=== PATIENT | female | born 1995 | race Caucasian/White ===

== ENCOUNTER 2020-01-29 17:40 | Emergency (ER) | payer MEDICAID, OTHER ==
[~2020-01-29] VITALS: Ht 154.9 cm; Wt 63.5 kg
[2020-01-29 18:28] LABS: Basophils # (auto) 0 10 ^3/uL (0-0.2); Basophils % (auto) 0.5 % (0.0-2.0); Eosinophils # (auto) 0.1 10 ^3/uL (0-0.8); Eosinophils % (auto) 0.8 % (0.0-7.0); Hematocrit 39.3 % (36.0-46.0); Lymphocytes # (auto) 2.1 10 ^3/uL (0.4-5.4); Lymphocytes % (auto) 22.5 % (10.0-50.0); Mean Corpuscular Hemoglobin 29.9 pg (28.0-32.0); Mean Corpuscular Hgb Conc. 33.2 g/dL (32.0-36.0); Mean Corpuscular Volume 90.3 fL (80.0-100.0); Monocytes # (auto) 0.6 10 ^3/uL (0-1.3); Monocytes % (auto) 5.9 % (0.0-12.0); Neutrophils # (auto) 6.6 10 ^3/uL (1.6-8.6); Neutrophils % (auto) 70.3 % (37.0-80.0); Nucleated Red Blood Cells % 0.1 %; Platelet Count (auto) 240 10^3/uL (140-450); Red Blood Cells 4.35 10^6/uL (4.0-5.20); Red Cell Distribution Width 14.9 % (11.8-14.3); White Blood Cell 9.4 10^3/uL (4.4-10.8)
[2020-01-29 18:47] LABS: Urine Bacteria NONE SEEN /hpf (None Seen); Urine Blood 1+ /uL (Negative); Urine WBC 1 /hpf (0 - 5)
[2020-01-29 19:03] LABS: Albumin 3.5 g/dL (3.4-5.0); BUN/Creatinine Ratio 14.1; Calcium 8.5 mg/dL (8.5-10.1); Potassium 3.7 mmol/L (3.5-5.1)
[2020-01-29 19:06] LABS: Bilirubin, Total 0.3 mg/dL (0.2-1.0); Total Protein 7.6 g/dL (6.4-8.2)
[2020-01-29 20:00] VITALS: BP 120/92
== END 2020-01-29 21:38 | disposition home or self-care (01) ==
LOC: ER 17:40
DX: O20.9 Hemorrhage in early pregnancy, unspecified (principal); O26.891 Other specified pregnancy related conditions, first trimester; R10.9 Unspecified abdominal pain; O99.331 Smoking (tobacco) complicating pregnancy, first trimester; Z3A.01 Less than 8 weeks gestation of pregnancy
CPT/HCPCS: 36415; 76801; 76817; 80053; 81001; 83690; 84702; 85025

== ENCOUNTER 2025-06-02 00:45 | Emergency (ER) | payer MEDICAID, OTHER ==
[~2025-06-02] VITALS: Ht 157.5 cm; Wt 75.0 kg
[2025-06-02 02:03] LABS: Hematocrit 40.7 % (36.0-46.0); Hemoglobin 13.6 g/dL (12.2-16.2); Mean Corpuscular Hemoglobin 30.0 pg (28.0-32.0); Mean Corpuscular Volume 89.8 fL (80.0-100.0); Nucleated Red Blood Cells % 0.0 %
[2025-06-02 02:19] LABS: Alanine Aminotransferase 22 U/L (7-40); Alkaline Phosphatase 76 U/L (46-116); Anion Gap 10 (5-15); BUN/Creatinine Ratio 10.4 (10.0-20.0); Calcium 9.2 mg/dL (8.7-10.4); Carbon Dioxide 24 mmol/L (20-31); Chloride 106 mmol/L (98-107); Glucose 99 mg/dL (74-106); Potassium 4.0 mmol/L (3.5-5.1); Sodium 140 mmol/L (136-145); Total Protein 7.3 g/dL (5.7-8.2)
[2025-06-02 02:20] LABS: Albumin 4.3 g/dL (3.2-4.8); Bilirubin, Total 0.2 mg/dL (0.2-1.0); Blood Urea Nitrogen 8 mg/dL (9-23); INR 0.92 (0.9-1.15); Partial Thromboplastin Time 25.1 SEC (24.5-34.5); Prothrombin Time 9.8 sec (9.3-11.8)
--- NOTE | 2025-06-02 03:22 | DVH ---
INDICATION: vag bleed, r/o ectopic TECHNIQUE: Multiple real-time grayscale transabdominal sonographic images along with color and duplex Doppler of the uterus and ovaries were obtained. COMPARISON: None FINDINGS: The uterus measures 7.6 x 4.2 x 4.6 cm. The myometrium is homogeneous. No intrauterine gestational sac or cavitary fluid. Endometrial thickness measures 12.5 mm. A nabothi an cyst and small amount of endocervical fluid are present. The right ovary measures 3.5 x 2 x 2 cm and contains a cystic lesion with low-level internal echoes m easuring 2.2 x 2.1 x 1.9 cm. Ovarian color and spectral Doppler flow are present. The left ovary measures 4.9 x 3.5 x 4 cm and contains a cystic lesion with low-level internal echoes measuring 2.6 x 3.1 x 4.1 cm. Ovarian color and spectral Doppler flow are present. A physiologic amount of simple pelvic ascites is present in the posterior cul-de-sac. IMPRESSION: 1. No intrauterine gestation. In the setting of a positive laboratory tests for and no hist ory of miscarriage, exam is consistent with of unknown location, designation which includes normal early as does not exclude ectopic . Recommend trending of quantitative HC G values and close clinical follow-up. Follow-up ultrasound may be considered within 2 weeks. 2. Mildly complex cystic lesions in each ovary demonstrate echotexture most consistent with hemorrhag ic cysts, and no specific features of gestational sac/ectopic . Attention on subsequent exam s. 3. Small amount of simple appearing pelvic ascites.
--- NOTE | 2025-06-02 04:08 | ED.PDOC ---
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 Patient is a , approximately 3-4 weeks by LMP (end date May 11). States she has started having vaginal bleeding 5 days ago, consuming 2 pads per day. Three days ago, she tested positive for , associated with left lower quadrant abdominal pain. She was seen by her OB yesterday morning, advised close follow up, but patient went to [facility] last night because she was worried. Patient has an other checkup with her Ob, 2 days from now . Her OB Gyne doctor order her some outpatient labs to be obtained on Wednesday. It sounded like the OB Gyne doctor who saw her yesterday was not worried about her history and findings and complaints and wanted to monitor as an outpatient. He also performed an ultrasound in his office but did not obtain a beta-hCG levels and ordered the test as an outpatient. Patient does not know her beta-hCG levels that was obtained at [facility]. Patient is nontoxic in appearance not hypotensive stable vital signs in no acute distress. Initial Vitals BP: 151/91 HR: 75 RR: 20 O2: 97% Temp: 98.1 Past Medical History: Vitamin-D deficiency, endometriosis, dyslipidemia, ovarian cyst Past Surgical History: Laparoscopic procedure for endometriosis 2020, right sa lpingectomy for ruptured ectopic Social History: Denies ETOH, smoking, and drug use. Medications: Allergies: HPI: Poor Historian. REVIEW OF SYSTEMS: CONSTITUTIONAL: Denies acute: fever, diaphoresis, chills, generalized weakness. HEAD: Denies acute: headache, photophobia Eyes: Denies acute: Double vision, vision loss, eye pain, eye discharge. EARS: Denies acute: tinnitus, hearing loss, ear discharge, ear pain, THROAT: Denies acute: sore throat, swelling, difficulty swallowing , pain with swallowing, change in voice. NECK: Denies acute: neck pain, neck swelling, stiff neck. HEART: Denies acute : chest pain, palpitations, LUNGS: Denies acute: SOB, wheezing, cough, hemoptysis ABDOMEN: Denies acute: abdominal pain, Nausea, Vomiting, diarrhea, melena , hematemesis, hematochezia SKIN: Denies acute: rash, redness, lesions, itchiness. EXTREMITIES: Denies acute: calf pain, numbness, tingling, weakness, denies pain in extremity. Denies acute: Low back pain. Neuro: Denies acute: focal neurological deficit, motor or sensory focal neurological deficit, tremors, seizure like activity, confusion, dizziness, change in mental status, loss of bowel or bladder function, cauda equina like symptoms. : Denies acute: dysuria, hematuria, flank pain, increase in urinary frequency. PSYCH: Denies acute: hallucination, suicidal ideation, homicidal ideation. FEMALE: Denies acute: foul odor, unusual discharge. PHYSICAL EXAM: General: -----no---acute distress, awake and alert. Head: normocephalic, atraumatic. Neck: supple, trachea is midline, no swelling. Throat: Normal phonation. Eyes:, no erythema, no purulent discharge, no proptosis, no icterus. Heart: regular rate, regular rhythm, no significant murmur appreciated. Lungs: no apparent respiratory distress, Able to speak in full sentences. No wheezing, no rhonchi, no crackles. No stridors Clear to auscultation bilaterally. Abdomen: Mild left lower quadrant tender to palpation, non distended, soft, no guarding, no rebound, + bowel sounds. Neuro: Awake, Alert, oriented to name, self, situation, follows commands GCS=15. Speech is normal. Skin: no petechia, no purpura, no cyanosis, non-pale, not jaundice. Lower extremities: --no - Pitting edema no deformity, no focal swelling, no calf TTP. Makes eye contact. moves all four extremities. Face: no apparent facial droop. Ambulating in the ED independently. ED COURSE: DISCLAIMER: This medical document was created using an electronic medical record system with voice recognition software and computerized dictation system. Although this document has been carefully reviewed, there might still be some phonetic and typographical errors. Occasional wrong-word or "sound-alike" substitutions may have occurred due to the inherent limitations of voice recognition software. The se areas are purely typographical due to imperfections of the software programs and do not reflect any compromise in the patient's medical care. Please read the chart carefully and recognize, using context, where these substitutions have occurred. 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) Vaginal Bleeding: - Complete, - Incomplete, - Inevitable, - Missed, - Threatened, Abruptio Placentae, Blood Loss Anemia, Cervicitis, Dysmenorrhea, Ectopic , Hormonal, Menorrhagia, Menometrorrhagia, Menstrual Bleeding, Myomatous Uterus, PID, Placenta Previa, Precipitous Hct, Trauma, UTI, Vaginitis, Other (Differential diagnosis includes but not limited to DU B, menorrhea, metromenorrhagia, neoplasm, coagulopathy,, trauma, miscarriage, placenta previa, placental abruption, ) X-Ray, Labs, Meds, VS Vital Signs Date Time Temp Pulse Resp B/P (MAP) Pulse Ox O2 Delivery O2 Flow Rate FiO2 06/02/25 05:27 97.5 85 16 130/90 (103) 98 97.5 06/02/25 03:13 97.7 76 16 117/82 (94) 96 97.7 06/02/25 00:56 98.1 75 20 151/91 97 98.1 Lab Test 06/02/25 04:46 06/02/25 01:41 Range/Units Urine Color Light-yellow Yellow Urine Clarity Turbid H Clear Urine pH 5.0 5.0-9.0 Urine Specific [place] 1.018 1.001-1.035 Urine Protein Negative Negative Urine Ketones Negative Negative Urine Blood 3+ H Negative /uL Urine Nitrite Negative Negative Urine Bilirubin Negative Negative Urine Urobilinogen Normal Negative mg/dL Urine Leukocyte Esterase Negative Negative /uL Urine RBC <1 0 - 4 /hpf Urine Microscopic WBC 1 0-5 /HPF Urine Squamous Epithelial Cells Few <5 /hpf Urine Bacteria None seen None Seen /hpf Urine Glucose Normal Normal mg/dL White Blood Count 9.1 4.4-10.8 10^3/uL Red Blood Count 4.53 4.0-5.20 10^6/uL Hemoglobin 13.6 12.2-16.2 g/dL Hematocrit 40.7 36.0-46.0 % Mean Corpuscular Volume 89.8 80.0-100.0 fL Mean Corpuscular Hemoglobin 30.0 28.0-32.0 pg Mean Corpuscular Hemoglobin Concent 33.4 32.0-36.0 g/dL Red Cell Distribution Width 14.4 H 11.8-14.3 % Platelet Count 208 140-450 10^3/uL Mean Platelet Volume 9.7 6.9-10.8 fL Neutrophils (%) (Auto) 58.5 37.0-80.0 % Lymphocytes (%) (Auto) 31.6 10.0-50.0 % Monocytes (%) (Auto) 7.2 0.0-12.0 % Eosinophils (%) (Auto) 2.3 0.0-7.0 % Basophils (%) (Auto) 0.4 0.0-2.0 % Neutrophils # (Auto) 5.3 1.6-8.6 10 ^3/uL Lymphocytes # (Auto) 2.9 0.4-5.4 10 ^3/uL Monocytes # (Auto) 0.7 0-1.3 10 ^3/uL Eosinophils # (Auto) 0.2 0-0.8 10 ^3/uL Basophils # (Auto) 0 0-0.2 10 ^3/uL Nucleated Red Blood Cells 0.0 % Prothrombin Time 9.8 9.3-11.8 sec Prothrombin Time INR 0.92 0.9-1.15 Activated Partial Thromboplast Time 25.1 24.5-34.5 SEC Sodium Level 140 136-145 mmol/L Potassium Level 4.0 3.5-5.1 mmol/L Chloride Level 106 98-107 mmol/L Carbon Dioxide Level 24 20-31 mmol/L Anion Gap 10 5-15 Blood Urea Nitrogen 8 L 9-23 mg/dL Creatinine 0.77 0.550-1.02 mg/dL Glomerular Filtration Rate Calc 106 >90 mL/min BUN/Creatinine Ratio 10.4 10.0-20.0 Serum Glucose 99 74-106 mg/dL Lactic Acid Level 1.2 0.4-2.0 mmol/L Calcium Level 9.2 8.7-10.4 mg/dL Total Bilirubin 0.2 0.2-1.0 mg/dL Aspartate Amino Transferase (AST) 18 13-40 U/L Alanine Aminotransferase (ALT) 22 7-40 U/L Alkaline Phosphatase 76 46-116 U/L Total Protein 7.3 5.7-8.2 g/dL Albumin 4.3 3.2-4.8 g/dL Beta HCG, Quantitative 922.5 H 1.5-4.2 mIU/mL [facility] [id number] [place] [address] Ph: [phone] DIAGNOSTIC IMAGING Diagnostic Imaging Report : [id number] Signed PATIENT: MANJIT GONZALEZ ACCT: [id number] UNIT: [id number] : 1995 LOC: ER ROOM / BED: / AGE / SEX: 29 / F ADM STATUS: REG ER SERVICE 0111 ORDERING PHYSICIAN: TADEO RAMIREZ DO PROCEDURE(s): OB4US - OB ULTRASOUND COMP LESS 14WKS REASON: vag bleed, r/o ectopic ORDER NUMBER(s): [id number], ACCESSION NUMBER(s): [id number] INDICATION: vag bleed, r/o ectopic TECHNIQUE: Multiple real-time grayscale transabdominal sonographic images along with color and duplex Doppler of the uterus and ovaries were obtained. COMPARISON: None FINDINGS: The uterus measures 7.6 x 4.2 x 4.6 cm. The myometrium is homogeneous. No intrauterine gestational sac or cavitary fluid. Endometrial thickness measures 12.5 mm. A nabothian cyst and small amount of endocervical fluid are present. The right ovary measures 3.5 x 2 x 2 cm and contains a cystic lesion with low- level internal echoes measuring 2.2 x 2.1 x 1.9 cm. Ovarian color and spectral Doppler flow are present. The left ovary measures 4.9 x 3.5 x 4 cm and contains a cystic lesion with low- level internal echoes measuring 2.6 x 3.1 x 4.1 cm. Ovarian color and spectral D oppler flow are present. A physiologic amount of simple pelvic ascites is present in the posterior cul-de-sac. IMPRESSION: 1. No intrauterine gestation. In the setting of a positive laboratory tests for and no history of miscarriage, exam is consistent with of unknown location, designation which includes normal early as does not exclude ectopic . Recommend trending of quantitative HCG values and close clinical follow-up. Follow-up ultrasound may be considered within 2 weeks. 2. Mildly complex cystic lesions in each ovary demonstrate echotexture most consistent with hemorrhagic cysts, and no specific features of gestational sac/ectopic . Attention on subsequent exams. 3. Small amount of simple appearing pelvic ascites. ATED BY: REINA LOPEZ MD DICTATED DATE/TIME: 06/02/25318 SIGNED BY: REINA LOPEZ MD SIGNED DATE/TIME: 06/02/25318 CC: Time of 1ST Reevaluation: 04:08 Reevaluation 1ST: Unchanged Time of 2ND Reevaluation: 05:04 (The case was discussed with the OB Gyne on- call team (HPI, physical exam, labs and diagnostic tests that were available at the time of disposition, ED course, treatment plan) on the phone. They agreed with our management and recommend outpatient follow up with the patient's OB Gyne doctor. Dr. Webster. ) Patient Education/Counseling: Diagnosis, Treatment Family Education/Counseling: No Family Present Comments MDM: patient presented with the above HPI.---vaginal bleed in and abdominal pain--workup was initiated. patient was found with the above mentioned diagnosis. the following medications were ordered: please refer to order lists of meds and tests obtained by myself Dr. Ramirez. Patient ED course and VS have been stabilized. Patient has been reassessed in the ED and remained in a stable condition. Pertinent incidental findings were discussed with the patient and/or family. Patient/family voices understanding and is agreeable with plan. Patient has been observed in the ED adequate length of time to insure improvement/stability. Escalation of care considered: Consideration of escalation to observation or admission OB Gyne doctor was consulted. Patient was DISCHARGED home in a stable condition. All the reports of any imaging studies that were ordered by myself were reviewed by myself. Departure 1 Departure Time of Disposition: 04:16 Impression: Primary Impression: Vaginal bleeding in Additional Impression: Hemorrhagic cyst Disposition: 01 HOME / SELF CARE / HOMELESS Condition: Stable Additional Instructions: Additional instructions: You MUST follow-up with your primary care/family doctor in 1 to 2 days. If you are unable to see your primary care/family doctor, please return to our emergency room for re-assessment and re-evaluation in 1 to 2 days. Return to the emergency room here in our facility or to the nearest ER [facility] if your symptoms change or worsen. CONSULTATIONS: you MUST Follow-up for consultation as soon as possible with: -OB Gyne doctor in 1-2 days. Please call for appointment. You MUST call the consultants office yourself to make an appointment. You may need to arrange that through your insurance and/or your primary/family doctor. If you are unable to see the [facility] consultant in 1 to 2 days, you must return to our emergency room (or any other ER of your choice) for re-assessment and re- evaluation. Adequate fluid hydration. Absolute pelvic rest. Repeat beta-hCG levels in 48-72 hours. Repeat pelvic ultrasound in 4-5 days or sooner if needed. Beta HCG taken at 06/02/2025 at 0141 was 922.5 You have an appointment with your OB Gyne doctor this coming Wednesday. Please make sure you see him at that time. Below is a copy of your radiological report for follow up: [place] [address] Ph: [phone] DIAGNOSTIC IMAGING Diagnostic Imaging Report : [id number] Signed PATIENT: MANJIT GONZALEZ ACCT: [id number] UNIT: [id number] : 1995 LOC: ER ROOM / BED: / AGE / SEX: 29 / F ADM STATUS: REG ER SERVICE 0111 ORDERING PHYSICIAN: TADEO ARMIREZ DO PROCEDURE(s): OB4US - OB ULTRASOUND COMP LESS 14WKS REASON: vag bleed, r/o ectopic ORDER NUMBER(s): [id number], ACCESSION NUMBER(s): [id number] INDICATION: vag bleed, r/o ectopic TECHNIQUE: Multiple real-time grayscale transabdominal sonographic images along with color and duplex Doppler of the uterus and ovaries were obtained. COMPARISON: None FINDINGS: The uterus measures 7.6 x 4.2 x 4.6 cm. The myometrium is homogeneous. No intrauterine gestational sac or cavitary fluid. Endometrial thickness measures 12.5 mm. A nabothian cyst and small amount of endocervical fluid are present. The right ovary measures 3.5 x 2 x 2 cm and contains a cystic lesion with low- level internal echoes measuring 2.2 x 2.1 x 1.9 cm. Ovarian color and spectral Doppler flow are present. The left ovary measures 4.9 x 3.5 x 4 cm and contains a cystic lesion with low- level internal echoes measuring 2.6 x 3.1 x 4.1 cm. Ovarian color and spectral Doppler flow are present. A physiologic amount of simple pelvic ascites is present in the posterior cul-de-sac. IMPRESSION: 1. No intrauterine gestation. In the setting of a positive laboratory tests for and no history of miscarriage, exam is consistent with of unknown location, designation which includes normal early as does not exclude ectopic . Recommend trending of quantitative HCG values and close clinical follow-up. Follow-up ultrasound may be considered within 2 weeks. 2. Mildly complex cystic lesions in each ovary demonstrate echotexture most consistent with hemorrhagic cysts, and no specific features of gestational s ac/ectopic . Attention on subsequent exams. 3. Small amount of simple appearing pelvic ascites. ATED BY: REIAN LOPEZ MD DICTATED DATE/TIME: 06/02/25318 SIGNED BY: REINA LOPEZ MD SIGNED DATE/TIME: 06/02/25318 CC: Discharged With: Self Critical Care Note Critical Care Time?: Yes (45 min-critical care time only) I personally scribed for TADEO RAMIREZ DO ([email or web address]) on 06/02/25 at 04:08. Electronically submitted by Brian Alegria ([email or web address]). I personally scribed for TADEO RAMIREZ DO ([email or web address]) on 06/02/25 at 04:09. Electronically submitted by Brian Alegria ([email or web address]). I personally scribed for TADEO RAMIREZ DO ([email or web address]) on 06/02/25 at 04:19. Electronically submitted by Brian Alegria ([email or web address]). TADEO RAMIREZ DO Jun 02, 2025 04:08
[2025-06-02 05:05] LABS: Urine Protein, UAD Negative (Negative)
[2025-06-02 05:27] VITALS: BP 130/90; PULSE 85; RESP 16; TEMP 97.5; O2SAT 98
== END 2025-06-02 05:56 | disposition home or self-care (01) ==
LOC: ER 00:45
DX: O20.9 Hemorrhage in early pregnancy, unspecified (principal); N00-N99 Diseases of the genitourinary system; R10.2 Pelvic and perineal pain; O99.281 Endocrine, nutritional and metabolic diseases complicating pregnancy, first trimester; E78.5 Hyperlipidemia, unspecified; Z3A.01 Less than 8 weeks gestation of pregnancy; Z90.79 Acquired absence of other genital organ(s)
CPT/HCPCS: 36415; 76801; 76817; 80053; 81001; 83605; 84702; 85025; 85610; 85730; 86850; 86900; 86901